=== PATIENT | female | born 2005 | race Caucasian/White ===

== ENCOUNTER 2025-05-27 20:06 | Emergency (ER) | payer BC, OTHER, SELFPAY ==
[2025-05-27] VITALS (12 sets, daily range): BP systolic 113–137; BP diastolic 82–103; PULSE 70–102; RESP 15–26; TEMP 36.8; O2SAT 93–100
--- OUTSIDE RECORDS SUMMARY | 2025-05-27 19:30 | XMS_ITS | Encounter Summary ---
Author Organization [facility] Healthcare Address [address] [place] [address] Care Team Providers Care Small Engine Mechanic Name Role Phone Kisha Coleman NP Primary Care Provider [phone] Reason for Visit * Reason Comments Abdominal Pain abdominal pain start ed around 5 pm, 510 pain, making her nauseous Encounter Details Date Type Department Care Team (Late st Contact Info) Description 05/27/2025 7:30 PM CDT Office Visit [facility] at [address] [address] Gabino Porter NP [address] [place] [address] [address] [place] [address] Right upper quadrant abdominal tenderness with rebound tenderness (Primary Dx); Pain of upper abdomen; Elevated blood pressure reading Social History Tobacco Use Types Packs/Day Years Used Date Smoking Tobacco: Never Passive Smoke Exposure: Never Smokeless Tobacco: Never Alcohol Use Standard Drinks/Week Comments Never 0 (1 standard drink = 0.6 oz pur e alcohol) PHQ-2 Answer Date Recorded PHQ-2 Total Score (If total score is 3 or more points, staff should administer the PHQ-9) 0 05/20/2025 AUDIT-C Answer Date Recorded Q1: How often do you have a drink containing alcohol? Never 05/20/2025 Q2: How many drinks containi ng alcohol do you have on a typical day when you are drinking? Patient does not drink Q3: How often do you have si x or more drinks on one occasion? 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 Gender Identity Not on file Sexual Orientation Not on file documented as of this encounter Last Filed Vital Signs Vital Sign Reading Time Taken Comments Blood Pressure 141/88 05/27/2025 7:31 PM CDT Pulse 73 05/27/2025 7:31 PM CDT Temperature 36.9 C (98.5 F) 05/27/2025 7:31 PM CDT Respiratory Rate 18 05/27/2025 7:31 PM CDT Oxygen Saturation 98% 05/27/2025 7:31 PM CDT Inhaled Oxygen Concentration - - Weight 57.2 kg (126 lb 3.2 oz) 05/27/2025 7:31 P M CDT Height 160 cm (5' 2.99) 05/27/2025 7:31 PM CDT Body Mass Index 22.36 05/27/2025 7:31 PM CDT documented in this encounter Progress Notes * Gabino Porter NP - 05/27/2025 7:30 PM CDT Images from the original note were not included. Subjective/Objective Patient ID: Demetria Brar is a 20 y.o. female. This patient has verbally consented to recording this visit in order to utilize AI technology in generating this note. Chief Complaint Abdominal Pain (abdominal pain started around 5 pm, 5/10 pain, making her nauseous ) History of Present Illness Demetria Brar is a 20 year old female who presents with severe upper abdominal pain after eating. She experiences severe upper abdominal pain that began after eating a rivas burrito for dinner. The pain is described as severe and is not associated with bowel movements. It was significant enough tocause her to leave work early and take a bath, which did not alleviate the symptoms. She had difficulty eating earlier in the day, with discomfort and lack of appetite when attempting to eat a granola bar. She also slept a large portion of the day, which is unusual for her. She took Lexapro before heading to work. There is no vomiting, fever, urinary symptoms, vaginal symptoms, or concern for STIs. She denies any recent illnesses and any chance of . During the review of symptoms, she reports burping and passing gas but did not relieve symptoms, she denies anyother gastrointestinal symptoms. She still has her appendix. Review of Systems All other systems reviewed and are negative. Physical Exam ABDOMEN: Tenderness in the right upper quadrant with rebound tenderness present. Physical Exam Vitals and nursing note reviewed. Constitutional: General: She is awake. She is not in acute distress. Appearance: Normal appearance. She is not ill-appearing. HENT: Head: Normocephalic and atraumatic. Cardiovascular: Rate and Rhythm: Normal rate and regular rhythm. Heart sounds: Normal heart sounds. Pulmonary: Effort: Pulmonary effort is normal. Breath sounds: Normal breath sounds. Abdominal: General: Bowel sounds are normal. Palpations: Abdomen is soft. Tenderness: There is abdominal tenderness in the right upper quadrant and epigastric area. There isrebound. There is no right CVA tenderness, left CVA tenderness or guarding. Neurological: Mental Status: She is alert and oriented to person, place, and time. Gait: Gait is intact. Gait normal. Psychiatric: Mood and Affect: Mood normal. Behavior: Behavior normal. Behavior is cooperative. Vitals: 05/27/25 1931 BP: 141/88 Pulse: 73 Resp: 18 Temp: 36.9 ??C (98.5 ??F) SpO2: 98% Weight: 57.2 kg (126 lb 3.2 oz) Height: 160 cm (5' 2.99) No results found. 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) Recurrent acute otitis media Otitis media, recurrent Current Outpatient Medications: adalimumab (Humira,CF, Pen) 40 mg/0.4 mL pen injector kit, INJECT 1 PEN UNDER THE SKIN EVERY 14 DAYS, Disp: 2 each, Rfl: 3 atomoxetine (STRATTERA) 40 mg capsule, Take 1 capsule (40 mg total) by mouth daily, Disp: 30 capsule, Rfl: 2 escitalopram (LEXAPRO) 20 mg tablet, TAKE 1 TABLET BY MOUTH EVERY DAY, Disp: 90 tablet, Rfl: 1 norelgestromin-ethin.estradioL (ORTHO EVRA) 150-35 mcg/24 hr, APPLY 1 PATCH TRANSDERMALLY EVERY 7 DAYS APPLY ONCE WEEKLY FOR 3 WEEKS OF A 4-WEEK CYCLE, Disp: , Rfl: ondansetron (ZOFRAN) 8 mg tablet, Take 1 tablet (8 mg total) by mouth every 8 (eight) hours as needed for nausea or vomiting, Disp: 20 tablet, Rfl: 3 No Known Allergies Social History Tobacco Use Smoking status: Never Passive exposure: Never Smokeless tobacco: Never Substance and Sexual Activity Drug use: No Sexual activity: Defer Alcohol Use: Not At Risk (05/20/2025) AUDIT-C Frequency of Alcohol Consumption: Never Average Number of Drinks: Patient does not drink Frequency of Binge Drinking: Never Past Surgical History: Procedure Laterality Date NO PAST/PREVIOUS EYE SURGERIES as of 11/26/2019 OTHER SURGICAL HISTORY Rheumatoid arthritis: humira, methotrexate Procedures Assessment/Plan 1. Right upper quadrant abdominal tenderness with rebound tenderness (Primary) - POCT urinalysis dipstick - POCT hCG, urine 2. Pain of upper abdomen - POCT urinalysis dipstick - POCT hCG, urine 3. Elevated blood pressure reading Results Recent Results (from the past 4 hours) POCT urinalysis dipstick Collection Time: 05/27/25 7:46 PM Result Value Ref Range Color, Urine, POC Yellow Clarity, ur, POC Clear Clear Glucose, ur, POC Negative Negative Bilirubin, ur, POC Negative Negative Ketones, ur, POC Negative Negative Specific [place], POC 1.030 1.003 - 1.030 Blood, ur, POC Negative Negative pH, ur, POC 6.0 5.0 - 8.0 Protein, ur, POC Negative Negative Urobilinogen, urine, POC 0.2 0.2 - 1.0 mg/dL Nitrite, ur, POC Negative Negative Leukocytes, ur, POC Negative Negative Lot Number [id number] POCT hCG, urine Collection Time: 05/27/25 7:46 PM Result Value Ref Range HCG, ur, POC Negative Negative Lot Number 1 QC Backgroud Clear Acceptable QC Control Line Acceptable Assessment & Plan Right upper quadrant abdominal pain Acute right upper quadrant pain with tenderness suggests appendicitis; differential includes gas, gallbladder pathology. Urgent evaluation needed due to risk of appendiceal rupture and sepsis. - Refer to ER for likely imaging and blood work to rule out appendicitis and assess gallbladder issues. Disposition Treatment plan including expectations, follow up, and return precautions discussed with patient/parent, verbalizes understanding. Medication dosage, use, and potential adverse reactions discussed with patient/parent. Advised to follow up with PCP if symptoms do not resolve as expected or sooner if condition worsens. Signs/symptoms warranting ER evaluation reviewed. Patient and/or guardian was given an opportunity to ask questions, questions answered. Gabino Porter NP This office note has been partially dictated using WoowUp software, and as a result portions of the record may have been created with this software. Occasional wrong-word or '[id number]' substitutions may have occurred due to the inherent limitations of voice recognition software. Read the chartcarefully and recognize, using context, where substitutions have occurred. Cosigned by Bravo Ambriz MD at 05/27/2025 9:33 PM CDT documented in this encounter Plan of Treatment Not on file documented as of this encounter Procedures Procedure Name Priority Date/Time Associated Diagnosis Comments POCT HCG, URINE Routine 05/27/2025 7:46 PM CDT Right upper quadrant abdominal tenderness with rebound tenderness Pain of upper abdomen POCT URINALYSIS DIPSTICK Routine 05/27/2025 7:46 PM CDT Right upper quadrant abdominal tenderness with rebound tenderness Pain of upper abdomen documented in this encounter Results * POCT hCG, urine (05/27/2025 7:46 PM CDT) HCG, ur, POC Negative Negative Lot Number 1 QC Backgroud Clear Acceptable QC Control Line Acceptable Urine 05/27/2025 7:46 PM CDT us Gabino Porter NP POINT OF CARE TEST ORDERABLES F inal Result * POCT urinalysis dipstick (05/27/2025 7:46 PM CDT) Color, Urine, POC Yellow Clarity, ur, POC Clear Clear Glucose, ur, POC Negative Negative Bilirubin, ur, POC Negative Negative Ketones, ur, POC Negative Negative Specific [place], POC 1.030 1.003 - 1.030 Blood, ur, POC Negative Negative pH, ur, POC 6.0 5.0 - 8.0 Protein, ur, POC Negative Negative Urobilinogen, urine, POC 0.2 0.2 - 1.0 mg/dL Nitrite, ur, POC Negative Negative Leukocytes, ur, POC Negative Negative Lot Number [id number] Urine 05/27/2025 7:46 PM CDT Gabino Porter NP POINT OF CARE TEST ORDERABLES F inal Result documented in this encounter Visit Diagnoses Diagnosis Right upper quadrant abdominal tenderness with rebound tenderness- Primary Pain of upper abdomen Elevated blood pressure reading Elevated blood pressure reading without diagnosis of hypertension documented in this encounter Care Teams Small Engine Mechanic Relationship Specialty Start Date End Date Kisha Coleman WASTEWATER PLANT CIVIL ENGINEER [address] [place] [id number] PCP - General Internal Medicine 04/15/25 documented as of this encounter
--- NOTE | 2025-05-27 20:28 | ED_ITS ---
HPI - Abdominal Pain General Chief Complaint: Abdominal Pain Stated Complaint: ABDOMINAL PAIN Time Seen by Provider: 05/27/25 20:14 Source: patient Mode of arrival: ambulatory Limitations: no limitations History of Present Illness HPI narrative: This is a 20-year-old female with history of juvenile arthritis who presents who presents to the ED for abdominal pain. Patient states about 4 hours ago she was eating a rivas burrito and shortly after she began have a burning and sharp sensation to her epigastrium. She has had nausea but no vomiting. She has never had this pain before. No prior history of GERD or ulcers. She does take NSAIDs once or twice a week. Denies fevers, chills, diarrhea, constipation. Related Data Allergies Allergy/AdvReac Type Severity Reaction Status Date / Time No Known Allergies Allergy Verified 05/27/25 20:45 Review of Systems 2 Review of Systems: Gen.: Denies fevers or chills Eyes: Denies eye pain or visual change ENT: Denies congestion Respiratory: Denies shortness of breath or cough CV: Denies chest pain or palpitations GI: As per HPI denies burning, urgency, frequency or hematuria Musculoskeletal: Denies back pain or muscle pain Neuro: Denies numbness, tingling, weakness or focal weakness Skin: Denies rash Except as documented, all other systems reviewed and negative Exam 2 Narrative: APPEARANCE: No acute distress, nontoxic, resting in bed EYES: EOMI HEENT: Normocephalic, atraumatic, OMM RESPIRATORY: No respiratory distress Clear to auscultation bilaterally with no rhonchi wheezing or rales. CARDIOVASCULAR: Regular rate and rhythm without murmurs rubs or gallops. ABDOMINAL: Soft, mild epigastric tenderness to palpation, nondistended, no rebound or guarding MUSCULOSKELETAl: Moves all extremities. No clubbing, cyanosis or edema. NEURO: Awake and alert. Following commands, speech normal, no focal deficits SKIN:: Warm, dry. No rashes lesions or abrasions PSYCHIATRIC: Normal affect/mood, Course Vital Signs Vital signs: Vital Signs Temperature 98.3 F 05/27/25 20:09 Pulse Rate 91 05/27/25 20:09 Respiratory Rate 16 05/27/25 20:09 Blood Pressure 127/89 05/27/25 20:09 Pulse Oximetry 98 05/27/25 20:09 Oxygen Delivery Room Air 05/27/25 20:09 Temperature 98.3 F 05/27/25 20:09 Pulse Rate 79 05/27/25 21:03 Respiratory Rate 17 05/27/25 21:03 Blood Pressure 131/100 H 05/27/25 21:03 Pulse Oximetry 99 05/27/25 21:03 Oxygen Delivery Room Air 05/27/25 20:09 MDM - Abdominal Pain MDM Narrative Medical decision making narrative: 20-year-old female Presenting for epigastric abdominal pain after eating a burrito. On initial evaluation patient was in no acute distress afebrile, hemodynamic stable. Differentials include but are not limited to: ACS, Cholecystitis, choledocolithiasis, GERD, PUD, Pancreatitis, SBO, Cancer, AAA Notable exam findings: Mild epigastric tenderness to palpation. No right upper quadrant or right lower quadrant tenderness to palpation Notable lab findings: CBC and CMP were without significant abnormalities. HCG negative. Lipase within normal limits. Given history and exam with relatively normal blood work, I do not believe that advanced imaging is indicated at this time. She was given a GI cocktail with [id number] improvement of her symptoms. Suspect that her symptoms are more likely due to gastritis versus GERD versus PUD. She was given a prescription for Protonix. She was advised follow-up with her PCP in the next week for re-evaluation. Patient was agreeable to the plan. Given strict return precautions. Medical Records Attestation: I reviewed the patient's medical records. Lab Data Attestation: I reviewed the patient's lab results. 05/27/25 20:43 05/27/25 20:43 Labs: Lab Results 05/27/25 05/27/25 Range/Units 20:40 20:43 WBC 10.3 H (4.5-10.0) K/mm3 RBC 4.34 (4.2-5.4) M/mm3 Hgb 12.8 (12.0-15.0) g/dL Hct 38.8 (37.0-47.0) % MCV 89.4 (80-100) fl MCH 29.5 (26-34) pg MCHC 33.0 (32-36) g/dl RDW 12.8 (11.5-14.5) % Plt Count 212 (150-375) k/mm3 MPV 11.7 H (7.4-10.4) fl Immature Gran % (Auto) 0.3 (0-0.5) % Neut % (Auto) 61.8 (45.5-73.1) % Lymph % (Auto) 28.5 (18.3-44.2) % [place] % (Auto) 6.6 (2.6-8.5) % Eos % (Auto) 2.3 (0-4.4) % Baso % (Auto) 0.5 (0.2-1.2) % Lymph # (Auto) 2.94 (0.9-3.2) K/mm3 [place] # (Auto) 0.7 H (0.1-0.6) K/mm3 Eos # (Auto) 0.2 (0-0.3) K/mm3 Baso # (Auto) 0.1 (0.0-0.1) K/mm3 Abs Immat Gran (auto) 0.03 (0.00-0.031) K/mm3 Absolute Neuts (auto) 6.4 (1.3-6.7) K/mm3 Absolute Nucleated RBC 0.000 (0.0-0.012) K/mm3 Nucleated RBC % 0.0 (0.0-0.2) % Sodium 136 L (137-145) mmol/L Potassium 4.1 (3.4-5.0) mmol/L Chloride 104 (98-107) mmol/L Carbon Dioxide 25 (22-30) mmol/L Anion Gap 7 (4-12) mmol/L BUN 11 (7-17) mg/dL Creatinine 0.70 (0.7-1.0) mg/dL Estim Creat Clear Calc 87 ml/min Estimated GFR > 60 (59 - ) Glucose 87 (65-110) mg/dL Calcium 8.9 (8.4-10.2) mg/dL Total Bilirubin 0.3 (0.2-1.3) mg/dL AST 31 (14-36) U/L ALT 16 (6-35) U/L Alkaline Phosphatase 44 (38-126) U/L Total Protein 7.2 (6.3-8.2) g/dL Albumin 4.1 (3.5-5.1) g/dL Lipase 58 (23-300) U/L POC Urine HCG, Qual Negative (Negative) Discharge Plan Discharge Clinical Impression: Abdominal pain Qualifiers: Abdominal location: epigastric Qualified Code(s): R10.13 - Epigastric pain Patient Disposition: Home Condition: Stable Instructions: Antibiotic Form, GERD (Gastroesophageal Reflux Disease) (ED), Abdominal Pain (ED) Additional Instructions: Take Protonix as prescribed. You may also take Tums as needed for your pain. Tried Tylenol but avoid ibuprofen. Follow up with the PCP in the next week for re-evaluation. Return to the ED for any new or worsening symptoms. Patient Language: [place] Prescriptions: New pantoprazole [Protonix] 20 mg tablet,delayed release (DR/EC) 20 mg PO QAM 28 Days Qty: 28 0RF Follow-up/Referrals: UNKNOWN,DOCTOR [Primary Care Provider]
[2025-05-27 20:42] LABS: BEDSIDEPREGUCG Negative (Negative)
[2025-05-27] MEDS: Please add drug allergy info to patient profile. 1 EACH XX (20:46)
[2025-05-27] MEDS: BELLADONNA ALK/PHENOB ELIX 10 ML, MAG HYDROX/ALUMINUM HYD/SIMETH 30 ML, LIDOCAINE 2% VI... PO (20:48)
[2025-05-27 20:50] LABS: Hematocrit 38.8 % (37.0-47.0); Hemoglobin 12.8 g/dL (12.0-15.0); Immature Granulocyte Percent A 0.3 % (0-0.5); Lymphocytes Absolute Auto 2.94 K/mm3 (0.9-3.2); Mean Corpuscular HGB Conc 33.0 g/dl (32-36); Mean Corpuscular Hemoglobin 29.5 pg (26-34); Mean Corpuscular Volume 89.4 fl (80-100); Nucleated Red Blood Cells Absolute Auto 0.000 K/mm3 (0.0-0.012); Nucleated Red Blood Cells Perc 0.0 % (0.0-0.2); Platelet Count Result 212 k/mm3 (150-375); Red Blood Count 4.34 M/mm3 (4.2-5.4); White Blood Count 10.3 K/mm3 (4.5-10.0)
[2025-05-27 21:03] LABS: Alanine Aminotransferase 16 U/L (6-35); Albumin Level 4.1 g/dL (3.5-5.1); Alkaline Phosphatase 44 U/L (38-126); Anion Gap 7 mmol/L (4-12); Aspartate Amino Transferase 31 U/L (14-36); Bilirubin,Total 0.3 mg/dL (0.2-1.3); Blood Urea Nitrogen 11 mg/dL (7-17); Calcium 8.9 mg/dL (8.4-10.2); Carbon Dioxide 25 mmol/L (22-30); Chloride 104 mmol/L (98-107); Estimated CRCL calculation 87 ml/min; Estimated Glomerular Filt Rate > 60; Glucose 87 mg/dL (65-110); Lipase 58 U/L (23-300); Potassium 4.1 mmol/L (3.4-5.0); Sodium 136 mmol/L (137-145); Total Protein 7.2 g/dL (6.3-8.2)
--- OUTSIDE RECORDS SUMMARY | 2025-05-27 22:15 | XMS_ITS | Encounter Summary ---
Author Organization [facility] Address [address] [place] [address] Phone Care Team Providers Care Clerk Operator Name Role Phone Dianelys Estrada ENVIRONMENTAL AIR SPECIALIST Primary Care Provider [phone] Kisha Coleman ENVIRONMENTAL AIR SPECIALIST Primary Care Provider Encounter Details Date Type Department Care Team (Late st Contact Info) Description 02/20/2019 Documentation [facility] Medicine Pediatric Rheumatology and Immunology [facility] 2nd [place] [address] [place] [phone] Sanford Swann MD [address] [place] [address] [place], [place] [id number] Social History Tobacco Use Types Packs/Day Years Used Date Smoking Tobacco: Never Smokeless Tobacco: Never Alcohol Use Standard Drinks/Week Comments No 0 (1 standard drink = 0.6 oz pur e alcohol) Comments No Sex and Gender Information Value Date Recorded Sex Assigned at Not on file Legal Sex Female 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 06/21/2020 06/21/2020 07/05/2020 3:0 7 AM INSURANCE AGENCY SALES MANAGER COVID: Suspected 01/12/2022 01/12/2022 01/12/2022 12:24 PM CDT COVID: Suspected 05/20/2022 05/20/2022 05/20/2022 11:33 AM CDT COVID: Suspected 06/22/2022 06/22/2022 06/23/2022 3:05 AM INSURANCE AGENCY SALES MANAGER COVID: Suspected 06/22/2022 06/22/2022 06/23/2022 3:54 AM INSURANCE AGENCY SALES MANAGER COVID: Suspected 07/27/2022 07/27/2022 07/27/2022 4:31 PM INSURANCE AGENCY SALES MANAGER COVID: Suspected 09/16/2022 09/16/2022 09/16/2022 9:45 PM INSURANCE AGENCY SALES MANAGER COVID: Suspected 10/06/2022 10/06/2022 10/06/2022 10:07 PM INSURANCE AGENCY SALES MANAGER COVID: Suspected 04/12/2023 04/12/2023 04/12/2023 1:00 PM CDT COVID: Suspected 10/10/2023 10/10/2023 10/10/2023 8:10 AM CDT Influenza, adult 10/10/2023 10/10/2023 10/17/2023 3:05 AM CDT COVID: Suspected 04/29/2024 04/29/2024 04/29/2024 3:30 PM CDT COVID: Suspected 10/27/2024 10/27/2024 10/28/2024 3:05 AM CDT documented as of this encounter Care Teams Clerk Operator Relationship Specialty Start Date End Date Dianelys Estrada NP PCP - General Family Medicine 05/25/21 04/14/25 Kisha Coleman NP [address] [place] [id number] PCP - General Internal Medicine 04/15/25 documented as of this encounter
--- OUTSIDE RECORDS SUMMARY | 2025-05-27 22:15 | XMS_ITS | Encounter Summary ---
Author Organization [facility] Address [address] [place] [address] Phone Care Team Providers Care Grain Grader Name Role Phone Dianelys Estrada FLIGHT OPERATIONS ENGINEER Primary Care Provider [phone] Kisha Coleman FLIGHT OPERATIONS ENGINEER Primary Care Provider [phone] Reason for Visit * Reason Onset Date Comments Med Refill 02/03/2021 Encounter Details Date Type Department Care Team (Late st Contact Info) Description 02/03/[address] [facility] Medicine Pediatric Rheumatology and Immunology [facility] 2[address] [place] [address] [place] [id number] Joyce Bland Med Refill Social History Tobacco Use Types Packs/Day Years Used Date Smoking Tobacco: Never Smokeless Tobacco: Never Alcohol Use Standard Drinks/Week Comments No 0 (1 standard drink = 0.6 oz pur e alcohol) PHQ-2 Answer Date Recorded PHQ-2 Total Score (If total score is 3 or more points, staff should administer the PHQ-9) 0 03/11/2020 Comments No Sex and Gender Information Value Date Recorded Sex Assigned at Not on file Legal Sex Female 12:30 AM CLASSIFIED ADVERTISING MANAGER Gender Identity Not on file Sexual Orientation Not on file documented as of this encounter Plan of Treatment Not on file documented as of this encounter Visit Diagnoses Not on filedocumented in this encounter Additional Health Concerns Infection Onset Date Last Indicated Resolved Time COVID: Suspected 01/12/2022 01/12/2022 01/12/2022 12:24 PM CDT COVID: Suspected 05/20/2022 05/20/2022 05/20/2022 11:33 AM CDT COVID: Suspected 06/22/2022 06/22/2022 06/23/2022 3:05 AM CLASSIFIED ADVERTISING MANAGER COVID: Suspected 06/22/2022 06/22/2022 06/23/2022 3:54 AM CLASSIFIED ADVERTISING MANAGER COVID: Suspected 07/27/2022 07/27/2022 07/27/2022 4:31 PM CLASSIFIED ADVERTISING MANAGER COVID: Suspected 09/16/2022 09/16/2022 09/16/2022 9:45 PM CLASSIFIED ADVERTISING MANAGER COVID: Suspected 10/06/2022 10/06/2022 10/06/2022 10:07 PM CLASSIFIED ADVERTISING MANAGER COVID: Suspected 04/12/2023 04/12/2023 04/12/2023 1:00 PM CDT COVID: Suspected 10/10/2023 10/10/2023 10/10/2023 8:10 AM CDT Influenza, adult 10/10/2023 10/10/2023 10/17/2023 3:05 AM CDT COVID: Suspected 04/29/2024 04/29/2024 04/29/2024 3:30 PM CDT COVID: Suspected 10/27/2024 10/27/2024 10/28/2024 3:05 AM CDT documented as of this encounter Care Teams Grain Grader Relationship Specialty Start Date End Date Dianelys Estrada NP PCP - General Family Medicine 05/25/21 04/14/25 Kisha Coleman NP [address] [place] [id number] PCP - General Internal Medicine 04/15/25 documented as of this encounter
--- OUTSIDE RECORDS SUMMARY | 2025-05-27 22:15 | XMS_ITS | Clinical Summary ---
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 AM CDT Fatigue, unspecified type VITAMIN D 25 HYDROXY Routine 05/20/2025 10:10 AM CDT Fatigue, unspecified type LIPID PANEL Routine 05/20/2025 10:10 AM CDT MAHSA (juvenile idiopathic arthritis), oligoarthritis, persistent (HCC) Fatigue, unspecified type Family history of diabetes mellitus in father HEPATITIS C ANTIBODY Routine 05/20/2025 10:10 AM CDT Need for hepatitis C screening test EGFR Routine 05/08/2025 12:29 PM CDT MAHSA (juvenile idiopathic arthritis), oligoarthritis, persistent (HCC) DIFFERENTIAL AUTO Routine 05/08/2025 12: 29 PM CDT MAHSA (juvenile idiopathic arthritis), oligoarthritis, persistent (HCC) COMPREHENSIVE METABOLIC PANEL Routine 05/08/2025 12:29 PM CDT MAHSA (juvenile idiopathic arthritis), oligoarthritis, persistent (HCC) CBC WITH AUTO DIFFERENTIAL Routine 05/08/2025 12:29 PM CDT MAHSA (juvenile idiopathic arthritis), oligoarthritis, persistent (HCC) T-SPOT.TB Routine 05/08/2025 12:29 PM CDT MAHSA (juvenile idiopathic arthritis), oligoarthritis, persistent (HCC) from Last 3 Months Results * POCT hCG, urine (05/27/2025 7:46 PM CDT) HCG, ur, POC Negative Negative Lot Number 1 QC Backgroud Clear Acceptable QC Control Line Acceptable Urine 05/27/2025 7:46 PM CDT Gabino Porter NP POINT OF CARE TEST ORDERABLES F inal Result * POCT urinalysis dipstick (05/27/2025 7:46 PM CDT) Color, Urine, POC Yellow Clarity, ur, POC Clear Clear Glucose, ur, POC Negative Negative Bilirubin, ur, POC Negative Negative Ketones, ur, POC Negative Negative Specific Poca, POC 1.030 1.003 - 1.030 Blood, ur, POC Negative Negative pH, ur, POC 6.0 5.0 - 8.0 Protein, ur, POC Negative Negative Urobilinogen, urine, POC 0.2 0.2 - 1.0 mg/dL Nitrite, ur, POC Negative Negative Leukocytes, ur, POC Negative Negative Lot Number [id number] Urine 05/27/2025 7:46 PM CDT Gabino Porter SUPERVISOR CAB POINT OF CARE TEST ORDERABLES F inal Result * Thyroid Function [place] (05/20/2025 10:10 AM CDT) [facility] TSH 1.26 0.30 - 4.20 mcIUnit/mL Blood 05/20/2025 10:1 0 AM CDT 05/20/2025 12:44 PM CDT Kisha Coleman SUPERVISOR CAB LAB BLOOD ORDERABLES Final R esult Performing Organization Address [facility] Co de Phone Number [facility] [address] [place] [address] * Iron profile w/ IBC (05/20/2025 10:10 AM CDT) [facility] Iron 142 35 - 145 mcg/dL TIBC 350 250 - 400 mcg/dL [facility] Transferrin saturation 41 20 - 50 % [facility] Blood 05/20/2025 10:1 0 AM CDT 05/20/2025 12:44 PM CDT Kisha Coleman SUPERVISOR CAB LAB BLOOD ORDERABLES Final R esult Performing Organization Address City/[facility]/ZIP Co de Phone Number [facility] [address] [place] [address] * Hepatitis C antibody Blood (05/20/2025 10:10 AM CDT) [facility] Hep C Ab Nonreactive Nonreactive Comment: Antibodies to HCV not detected. Does NOT exclude the possibility of recent exposure to HCV. Current interpretive data was last revised on 22 Testing performed by: [facility], [address] [place] [address]., [id number] Blood 05/20/2025 10:1 0 AM CDT 05/20/2025 4:10 PM CDT Kisha Coleman NP LAB MICROBIOLOGY - GENERAL O RDERABLES Final Result Performing Organization Address [facility] Co de Phone Number [address] [address] * Vitamin D 25 hydroxy (05/20/2025 10:10 AM CDT) [facility] Vitamin D 25-OH 50 30 - 80 ng/mL Comment:Testing performed by : [facility], [address] [place] [address]., [id number] Blood 05/20/2025 10:1 0 AM CDT 05/20/2025 4:12 PM CDT Kisha Coleman SUPERVISOR CAB LAB BLOOD ORDERABLES Final R esult Performing Organization Address [facility] de Phone Number [address] [address] * Hemoglobin A1c (05/20/2025 10:10 AM CDT) [facility] Hgb A1C 4.9 4.0 - 5.6 % Estimated Average Glucose 94 mg/dL [facility] Comment: The ADA recommends reporting an estimated Average Glucose (eAG) with all Hemoglobin A1c results using the equation derived from a study of 507 normal and diabetic adults. Minority populations were underrepresented and children were not included. (Diabetes Care 31:3670-5342, 2008). The eAG is not equivalent to a fasting glucose. Blood 05/20/2025 10:1 0 AM CDT 05/20/2025 12:44 PM CDT Kisha Coleman SUPERVISOR CAB LAB BLOOD ORDERABLES Final R esult Performing Organization Address [facility] Co de Phone Number [facility] [address] [place] [address] * Ferritin (05/20/2025 10:10 AM CDT) Pathologist [facility] Ferritin 37 13 - 150 ng/mL Blood 05/20/2025 10:1 0 AM CDT 05/20/2025 12:44 PM CDT Kisha Coleman SUPERVISOR CAB LAB BLOOD ORDERABLES Final R ult Performing Organization Address [facility] de Phone Number [facility] [address] [facility] [place] [address] * (ABNORMAL) Lipid panel (05/20/2025 10:10 AM CDT) Pathologist [facility] Cholesterol 221(H) 30 - 199 mg/dL Comment: Interpretive Data Ages < or = 19 years Acceptable: <170 mg/dL Borderline high: 170-199 mg/dL High: >or= 200 mg/dL Ages > or = 20 years Desirable: <200 mg/dL Borderline high: 200-239 mg/dL High: >or= 240 mg/dL Literature References: 1. Expert Panel on Integrated Guidelines for Cardiovascular Health and Risk Reduction in Children and Adolescents. Pediatrics 2011;128:S213 2. NCEP Expert Panel. Circulation 2004;110:227 Current Interpretive Data was last revised on 2018. Triglycerides 62 <=149 mg/dL [facility] Comment: Interpretive Data Ages < or = 9 years Acceptable: <75 mg/dL Borderline high: 75-99 mg/dL High: >or= 100 mg/dL Ages 10 to 20 years Acceptable: <90 mg/dL Borderline high: 90-129 mg/dL High: >or= 130 mg/dL Ages > or = 20 years Desirable: <150 mg/dL Borderline high: 150-199 mg/dL High: 200-499 mg/dL Very high: >or= 499 mg/dL Literature References: 1. Expert Panel on Integrated Guidelines for Cardiovascular Health and Risk Reduction in Children and Adolescents. Pediatrics 2011;128:S213 2. NCEP Expert Panel. Circulation 2004;110:227 Current Interpretive Data was last revised on 2018. HDL 88 >=40 mg/dL [facility] Comment: Interpretive Data Ages < or = 19 years Acceptable: >45 mg/dL Borderline low: 40-45 mg/dL Low: <40 mg/dL Ages > or = 20 years Desirable: >or= 60 mg/dL Low: <40 mg/dL Literature References: 1. Expert Panel on Integrated Guidelines for Cardiovascular Health and Risk Reduction in Children and Adolescents. Pediatrics 2011;128:S213 2. NCEP Expert Panel. Circulation 2004;110:227 Current Interpretive Data was last revised on 2018. LDL, calculated 122 <=129 mg/dL [facility] Comment: Interpretive Data Ages < or = 19 years Acceptable: <110 mg/dL Borderline high: 110-129 mg/dL High: >or= 130 mg/dL Ages > or = 20 years Optimal: <100 mg/dL Near optimal: 100-129 mg/dL Borderline high: 130-159 mg/dL High: >160 mg/dL Calculated using the Randy LDL-C estimating equation. This equation was implemented on 2024. Prior to this date LDL-C was estimated using the Friedewald equation. Literature References: 1. Expert Panel on Integrated Guidelines for Cardiovascular Health and Risk Reduction in Children and Adolescents. Pediatrics 2011;128:S213 2. NCEP Expert Panel. Circulation 2004;110:227 3. Randy Wooten al. FRANCIS Cardiol. 2019November 29;5(5):540-548. doi: 10.1001/jamacardio.2020.0013 Current Interpretive Data was last revised on 2024. Non-HDL Cholesterol 133 mg/dL [facility] Comment: Interpretive Data Ages < or = 19 years Acceptable: <120 mg/dL Borderline high: 120-144 mg/dL High: >145 mg/dL Ages > or = 20 years When triglycerides are >200 mg/dL, Non-HDL cholesterol is a secondary target of therapy with treatment goals that are 30 mg/dL greater than the LDL cholesterol target. Literature References: 1. Expert Panel on Integrated Guidelines for Cardiovascular Health and Risk Reduction in Children and Adolescents. Pediatrics 2011;128:S213 2. NCEP Expert Panel. Circulation 2004;110:227 Current Interpretive Data was last revised on 2018. Chol/HDL ratio 3 [facility] Blood 05/20/2025 10:1 0 AM CDT 05/20/2025 12:44 PM CDT us Kisha Coleman SUPERVISOR CAB LAB BLOOD ORDERABLES Final R esult [facility] [address] [facility] [place] [address] * T-SPOT.TB Blood (05/08/2025 12:29 PM CDT) [facility] T-SPOT.TB Negative SeeBelow Comment: Normal Value: Negative A negative test result does not exclude the possibility of exposure to or infection with Mycobacterium tuberculosis (M. tuberculosis). Patients with recent exposure to TB infected individuals exhibiting a negative T-SPOT.TB result should be considered for retesting within 6 weeks or if other relevant clinical symptoms indicate. Results from T-SPOT.TB testing must be used in conjunction with each individual's epidemiological history, current medical status, and results of other diagnostic evaluations. The T-SPOT.TB test is qualitative and results are reported as positive, borderline or negative, given that the test controls perform as expected. In line with the Centers for Disease Control and Prevention's 2010 recommendation to report quantitative measurements alongside the qualitative result, the laboratory provides spot counts for informational purposes only. The T-SPOT.TB test should not be interpreted as a quantitative test. T-SPOT.TB Panel A Spot Count 0 [facility] T-SPOT.TB Panel B Spot Count 0 [facility] T-SPOT.TB Negative Control Passed [facility] T-SPOT.TB Positive Control Passed [facility] Comment: Test Performed at: [facility], Granular [address] [place] [id number] GET EASON,PHD Blood 05/08/2025 12:2 9 PM CDT 05/08/2025 2:22 PM CDT us Shabbir Velez MD LAB MICROBIOLOGY - GENERAL ORDER GILMER Final Result Performing Organization Address [facility] [place] [address] * eGFR (05/08/2025 12:29 PM CDT) eGFR >90 >=60 mL/min/1. 73 m2 Comment: Interpretive Data Reference Interval Normal >/= 90 mL/min/1.73m2 Mildly decreased* 60 - 89 mL/min/1.73m2 Mildly to moderately decreased 45 - 59 mL/min/1.73m2 Moderately to severely decreased 30 - 44 mL/min/1.73m2 Severely decreased 15 - 29 mL/min/1.73m2 Kidney Failure < 15 mL/min/1.73m2 *Relative to young adult level Estimated glomerular filtration rate is determined by the 2020 CKD-EPI equation recommended by the National Kidney Foundation (A Unifying Approach to GFR Estimation: Recommendations of the NKF-ASK Task Force on Reassessing the Inclusion of Race in Diagnosing Kidney Disease, JASN 2020). The CKD-EPI equation should not be used for patients with unstable renal function and has not been validated in children and those over 70. Current interpretive data was last reviewed 2021. Testing performed by: [facility] [address] [facility] [place], [address] [place] [address] Blood 05/08/2025 12:2 9 PM CDT 05/08/2025 12:32 PM CDT Ran Rosie CHATMAN LAB BLOOD ORDERABLES Final Resul t Performing Organization Address [facility] Co de Phone Number [facility] [place] [address] * Differential, auto (05/08/2025 12:29 PM CDT) Neutrophil abs 6.37 1.50 - 6.50 K/cumm Comment:Testing performed by : [facility] De [facility] [place], [address] [place] [address] Imm gran abs 0.03 0.00 - 0.10 K/cumm [facility] Comment:Testing performed by : [facility], [address], [place] [address] Lymphocyte abs 1.90 0.80 - 3.30 K/cumm [facility] Comment:Testing performed by : [facility], [address], [place] [address] Monocyte abs 0.38 0.20 - 0.80 K/cumm [facility] Comment:Testing performed by : [facility], [address], [place] [address] Eosinophil abs 0.23 0.00 - 0.50 K/cumm [facility] Comment:Testing performed by : [facility], [address], [place] [address] Basophil abs 0.04 0.00 - 0.10 K/cumm [facility] Comment:Testing performed by : [facility], [address], [place] [address] Neutrophil pct 71.3 % [facility] Comment: Interpretive Data Percent cell count reference ranges are not reported, since discordance with absolute values may lead to misinterpretation of CBC data. Current Interpretive Data was last revised on 2022. Testing performed by: [facility], [address], [place] [address] Imm gran pct 0.3 % [facility] Comment: Interpretive Data Percent cell count reference ranges are not reported, since discordance with absolute values may lead to misinterpretation of CBC data. Current Interpretive Data was last revised on 2022. Testing performed by: [facility], [address], [place] [address] Lymphocyte pct 21.2 % [facility] Comment: Interpretive Data Percent cell count reference ranges are not reported, since discordance with absolute values may lead to misinterpretation of CBC data. Current Interpretive Data was last revised on 2022. Testing performed by: [facility], [address], [place] [address] Monocyte pct 4.2 % [facility] Comment: Interpretive Data Percent cell count reference ranges are not reported, since discordance with absolute values may lead to misinterpretation of CBC data. Current Interpretive Data was last revised on 2022. Testing performed by: [facility], [address], [place] [address] Eosinophil pct 2.6 % [facility] Comment: Interpretive Data Percent cell count reference ranges are not reported, since discordance with absolute values may lead to misinterpretation of CBC data. Current Interpretive Data was last revised on 2022. Testing performed by: [facility], [address], [place] [address] Basophil pct 0.4 % [facility] Comment: Interpretive Data Percent cell count reference ranges are not reported, since discordance with absolute values may lead to misinterpretation of CBC data. Current Interpretive Data was last revised on 2022. Testing performed by: [facility], [address] [facility] [address], [place] [address] Blood 05/08/2025 12:2 9 PM CDT 05/08/2025 12:30 PM CDT Shabbir Velez MD LAB BLOOD ORDERABLES Final Resul t [facility] Department [place] [address] * CBC with auto differential (05/08/2025 12:29 PM CDT) WBC 8.95 3.80 - 9.90 K/cumm Comment:Testing performed by : [facility], [address], [place] [address] Hgb 12.6 11.9 - 15.5 g/dL [facility] Comment:Testing performed by : [facility], [address], [place] [address] Hct 37.7 35.6 - 45.5 % [facility] Comment:Testing performed by : [facility], [address], [place] [address] Plt 184 150 - 400 K/cumm [facility] Comment:Testing performed by : [facility], [address], [place] [address] MPV 11.9 9.1 - 12.3 fL [facility] Comment:Testing performed by : [facility], [address], [place] [address] RBC 4.28 3.90 - 5.20 M/cumm [facility] Comment:Testing performed by : [facility], [address], [place] [address] MCV 88.1 81.3 - 96.4 fL [facility] Comment:Testing performed by : [facility], [address], [place] [address] MCH 29.4 27.1 - 33.3 pg [facility] Comment:Testing performed by : [facility], [address], [place] [address] MCHC 33.4 32.3 - 35.7 g/dL [facility] Comment:Testing performed by : [facility], [address], [place] [address] RDW CV 12.4 11.1 - 14.9 % [facility] Comment:Testing performed by : [facility], [address], [place] [address] RDW SD 39.6 35.7 - 48.1 fL [facility] Comment:Testing performed by : [facility], [address], [place] [address] NRBC abs 0.00 0.00 - 0.01 K/cumm [facility] Comment:Testing performed by : [facility], [address], [place] [address] Blood 05/08/2025 12:2 9 PM CDT 05/08/2025 12:30 PM CDT us Shabbir Velez MD LAB BLOOD ORDERABLES Final Resul t [facility] Department [place] [address] * (ABNORMAL) Comprehensive metabolic panel (05/08/2025 12:29 PM CDT) Sodium 139 135 - 145 mmol/L Comment:Testing performed by : [facility], [address], [place] [address] Potassium, pl 4.1 3.3 - 4.9 mmol/L [facility] Comment:Testing performed by : [facility], [address], [place] [address] Chloride 109 97 - 110 mmol/L [facility] Comment:Testing performed by : [facility], [address], [place] [address] CO2 23 22 - 32 mmol/L [facility] Comment:Testing performed by : [facility], [address], [place] [address] Anion gap 7 2 - 15 mmol/L [facility] Comment:Testing performed by : [facility], [address], [place] [address] BUN 11 6 - 25 mg/dL [facility] Comment:Testing performed by : [facility], [address], [place] [address] Creatinine 0.66 0.60 - 1.10 mg/dL [facility] Comment:Testing performed by : [facility], [address], [place] [address] Glucose 94 70 - 199 mg/dL [facility] Comment: Interpretive Data Fasting glucose >/= 126 mg/dl is diagnostic for diabetes. Fasting is defined as no caloric intake for at least 8 hours. Fasting glucose between 100 mg/dl to 125 mg/dl is diagnostic of prediabetes. In a patient with classic symptoms of hyperglycemia or hyperglycemic crisis, a random glucose >/= 200 mg/dl is diagnostic for diabetes. In the absence of unequivocal hyperglycemia, results should be confirmed by repeat testing. The classification and Diagnosis of Diabetes Diabetes Care 202; 46: S19-S40. Current interpretive data was last revised 2022. Testing performed by: [facility], [address], [place] [address] Calcium 9.1 8.5 - 10.3 mg/dL [facility] Comment:Testing performed by : [facility], [address], [place] [address] Bilirubin, total 0.2 0.1 - 1.2 mg/dL [facility] Comment:Testing performed by : [facility], [address], [place] [address] Protein, pl 7.0 6.5 - 8.5 g/dL [facility] Comment:Testing performed by : [facility], [address], [place] [address] Albumin 4.1 3.5 - 5.0 g/dL [facility] Comment:Testing performed by : [facility], [address], [place] [address] Alk phos 34(L) 40 - 130 Units/L [facility] Comment:Testing performed by : [facility], [address], [place] [address] ALT 9 7 - 45 Units/L [facility] Comment:Testing performed by : [facility], [address], [place] [address] AST 19 10 - 45 Units/L [facility] Comment:Testing performed by : [facility], [address], [place] [address] Blood 05/08/2025 12:2 9 PM CDT 05/08/2025 12:30 PM CDT us Shabbir Velez MD LAB BLOOD ORDERABLES Final Resul t [facility] Department [place] [address] from Last 3 Months Insurance [email or web address] [place] [email or web address] [place] [facility] [place] [address] [facility] Care Teams Hose Handler Relationship Specialty Start Date End Date Kisha Coleman NP [address] [place], [place] [id number] PCP - General Internal Medicine 04/15/25
--- OUTSIDE RECORDS SUMMARY | 2025-05-27 22:15 | XMS_ITS | Encounter Summary ---
Author Organization [facility] Healthcare Address [address] [place] [address] Care Team Providers Care Insurance Claims Supervisor Name Role Phone Kisha Coleman NP Primary Care Provider + [phone] Encounter Details Date Type Department Care Team (Late st Contact Info) Description 05/20/2025 Results Follow-Up [facility] Primary [facility] [address] [place] [address] Kisha Coleman, TIME CLERK [address] [place] [address] Lipid panel, Iron profile w/ IBC, Ferritin, Additional followed-up results: 2 Social History Tobacco Use Types Packs/Day Years [...] on file 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 Never 05/20/2025 9:15 AM Macrina Pelletier MA Q2: How many drinks containing alcohol do you have on a typical day when you are drinking? Patient does not drink 05/20/2025 9:15 AM Macrina Pelletier MA Q3: How often do you have six or more drinks on one occasion? Never 05/20/2025 9:15 AM Macrina Pelletier MA documented as of this encounter Plan of Treatment Not on file documented as of this encounter Visit Diagnoses Not on filedocumented in this encounter Care Teams Insurance Claims Supervisor Relationship Specialty Start Date End Date Kisha Coleman NP [address] [place] [address] PCP - General Internal Medicine 04/15/25 documented as of this encounter
--- OUTSIDE RECORDS SUMMARY | 2025-05-27 22:15 | XMS_ITS | Encounter Summary ---
Author Organization [facility] Healthcare Address [address] [place] [address] Care Team Providers Care Interlocking Tower Operator Name Role Phone Dianelys Estrada COMPUTER SCIENCE INSTRUCTOR Primary Care Provider [phone] Kisha Coleman COMPUTER SCIENCE INSTRUCTOR Primary Care Provider [phone] Encounter Details Date Type Department Care Team (Late st Contact Info) Description 01/01/2020 Telephone [facility] [place] [address] Ilene Sanford, Social History Tobacco Use Types Packs/Day Years Used Date Smoking Tobacco: Never Smokeless Tobacco: Never Alcohol Use Standard Drinks/Week Comments No 0 (1 standard drink = 0.6 oz pur e alcohol) PHQ-2 Answer Date Recorded PHQ-2 Score 0 03/24/2019 Comments No Sex and Gender Information Value Date Recorded Sex Assigned at Not on file 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 06/21/2020 06/21/2020 07/05/2020 3:0 7 AM LOCAL TELEPHONE OPERATOR COVID: Suspected 01/12/2022 01/12/2022 01/12/2022 12:24 PM CDT COVID: Suspected 05/20/2022 05/20/2022 05/20/2022 11:33 AM CDT COVID: Suspected 06/22/2022 06/22/2022 06/23/2022 3:05 AM LOCAL TELEPHONE OPERATOR COVID: Suspected 06/22/2022 06/22/2022 06/23/2022 3:54 AM LOCAL TELEPHONE OPERATOR COVID: Suspected 07/27/2022 07/27/2022 07/27/2022 4:31 PM LOCAL TELEPHONE OPERATOR COVID: Suspected 09/16/2022 09/16/2022 09/16/2022 9:45 PM LOCAL TELEPHONE OPERATOR COVID: Suspected 10/06/2022 10/06/2022 10/06/2022 10:07 PM LOCAL TELEPHONE OPERATOR COVID: Suspected 04/12/2023 04/12/2023 04/12/2023 1:00 PM CDT COVID: Suspected 10/10/2023 10/10/2023 10/10/2023 8:10 AM CDT Influenza, adult 10/10/2023 10/10/2023 10/17/2023 3:05 AM CDT COVID: Suspected 04/29/2024 04/29/2024 04/29/2024 3:30 PM CDT COVID: Suspected 10/27/2024 10/27/2024 10/28/2024 3:05 AM CDT documented as of this encounter Care Teams Interlocking Tower Operator Relationship Specialty Start Date End Date Dianelys Estrada NP PCP - General Family Medicine 05/25/21 04/14/25 Kisha Coleman NP [address] [place] [id number] PCP - General Internal Medicine 04/15/25 documented as of this encounter
--- OUTSIDE RECORDS SUMMARY | 2025-05-27 22:15 | XMS_ITS | Encounter Summary ---
Author Organization [facility] Address [address] [place] [address] Phone Care Team Providers Care Survey Director Name Role Phone Kisha Coleman NP Primary Care Provider [phone] Encounter Details Date Type Department Care Team (Late st Contact Info) Description 05/10/2025 Results Follow-Up [facility] Pediatric Rheumatology and Immunology [address] [place] [address] Pooja Clay MD [address] [facility] [address] [place] [address] [email or web address] Blood Social History Tobacco Use Types Packs/Day Years Used Date Smoking Tobacco: Never Passive Smoke Exposure: Never Smokeless Tobacco: Never Alcohol Use Standard Drinks/Week Comments No 0 (1 standard drink = 0.6 oz pur e alcohol) PHQ-2 Answer Date Recorded PHQ-2 Total Score (If total score is 3 or more points, staff should administer the PHQ-9) 1 04/15/2025 Comments No Sex and Gender Information Value Date Recorded Sex Assigned at Not on file 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
== END 2025-05-27 22:14 | disposition home or self-care (01) ==
LOC: ANHED 22:13
PROVIDERS: Emergency Provider Student in an Organized Health Care Education/Training Program
DX: R10.13 Epigastric pain (principal)
CPT/HCPCS: 36415; 80053; 81025; 83690; 85025; 99283; A9270